=== PATIENT | male | born 1980 | race Caucasian/White ===

== ENCOUNTER 2024-08-04 12:03 | Emergency (ER) | payer OTHER ==
[2024-08-04 12:26] VITALS: BP 126/73; PULSE 96; RESP 20; TEMP 99.4; BMI 58.1
== END 2024-08-04 13:47 | disposition home or self-care (01) ==
LOC: JER 12:03
DX: K64.9 Unspecified hemorrhoids (principal); I87.8 Other specified disorders of veins; K62.5 Hemorrhage of anus and rectum; K62.89 Other specified diseases of anus and rectum
CPT/HCPCS: 99283-25